=== PATIENT | male | born 1950 | race Caucasian/White ===

== ENCOUNTER 2019-09-04 05:32 | Observation (INO) | payer OTHER, BC ==
[~2019-09-04] VITALS: Ht 182.9 cm; Wt 88.6 kg
[~2019-09-04 05:32] MED LIST: FLUT1DIS3 INH; MELO15TA24 PO; THRIVE PO; VARE1TAB21 PO
[2019-09-04 06:21] VITALS: BP 129/86
[2019-09-04] MEDS ORDERED: LACTATED RINGERS 1,000 ML IV SCH (06:25)
[2019-09-04] MEDS ORDERED: LIDOCAINE-MPF 1%, 2ML ONE (06:28)
[2019-09-04] MEDS ORDERED: GABAPENTIN 300 MG CAPSULE ONE (06:42)
[2019-09-04] MEDS ORDERED: ACETAMINOPHEN 500 MG TABLET ONE (06:42)
[2019-09-04] MEDS ORDERED: FENTANYL PF 250 MCG/5ML ONE ×3 (06:47→08:39)
[2019-09-04] MEDS ORDERED: MIDAZOLAM 1 MG/ML, 2ML ONE (06:47)
[2019-09-04] MEDS ORDERED: GLYCOPYRROLATE 0.2MG/1ML, 5ML ONE (06:53)
[2019-09-04] MEDS ORDERED: PROPOFOL 10 MG/ML, 20ML ONE (06:53)
[2019-09-04] MEDS ORDERED: ROCURONIUM 10MG/ML,5ML ONE (06:53)
[2019-09-04] MEDS ORDERED: CEFAZOLIN 1,000 MG ONE (06:53)
[2019-09-04] MEDS ORDERED: PHENYLEPHRINE 10 MG/ML ONE (06:53)
[2019-09-04] MEDS ORDERED: NEOSTIGMINE 1 MG/ML, 10ML ONE (06:53)
[2019-09-04] MEDS ORDERED: GABAPENTIN 300 MG CAPSULE PO ONE (07:00)
[2019-09-04] MEDS ORDERED: ACETAMINOPHEN 500 MG TABLET PO ONE (07:00)
[2019-09-04] MEDS ORDERED: INDIGO CARMINE 0.8%, 5ML ONE (07:16)
[2019-09-04] MEDS ORDERED: BUPIVACAINE/PF 0.25% ONE (07:16)
[2019-09-04] MEDS ORDERED: THROMBIN (RECOMBINANT) 5,000 UNIT VIAL TP ONE (07:16)
[2019-09-04] MEDS ORDERED: OPIUM/BELLADONNA SUPP.RECT 16.2-60 MG ONE (07:17)
[2019-09-04] MEDS ORDERED: EPINEPHRINE 1 MG/ML, 1ML ONE ×2 (07:17→09:30)
[2019-09-04] MEDS ORDERED: BUPIVACAINE/PF 0.5% ONE (07:27)
[2019-09-04] MEDS ORDERED: hydrALAzine 20 MG/ML, 1ML IV PRN (07:30)
[2019-09-04] MEDS ORDERED: FENTANYL PF 100 MCG/2ML IV PRN (07:30)
[2019-09-04] MEDS ORDERED: LABETALOL 5MG/ML, 20ML IV PRN (07:30)
[2019-09-04] MEDS ORDERED: HYDROmorphone 2 MG/ML, 1ML IVPush PRN (07:30)
[2019-09-04] MEDS ORDERED: MORPHINE SULFATE 4 MG/ML, 1ML IVPush PRN (07:30)
[2019-09-04] MEDS ORDERED: ONDANSETRON 2MG/ML, 2ML IV PRN ×2 (07:30→10:30)
[2019-09-04] MEDS ORDERED: MEPERIDINE/PF 25MG/ML,1ML IVPush PRN (07:30)
[2019-09-04] MEDS ORDERED: ALBUTEROL SULFATE 2.5 MG/3 ML NPPB PRN (07:30)
[2019-09-04] MEDS ORDERED: OXYcodone 5 MG/5 ML ORAL.SOL UDC PO PRN (07:30)
[2019-09-04] MEDS ORDERED: hydrALAzine 20 MG/ML, 1ML ONE (08:40)
[2019-09-04] MEDS ORDERED: METOPROLOL 1 MG/ML, 5ML ONE (09:07)
[2019-09-04] MEDS ORDERED: HYDROmorphone 1 MG/ML, 1ML INJ IV PRN (10:30)
[2019-09-04] MEDS: HEPARIN 5,000 UNITS/ML, 1ML SQ SCH ×2 (10:30→18:30)
[2019-09-04] MEDS ORDERED: FENTANYL PF 100 MCG/2ML ONE ×2 (10:48→12:38)
[2019-09-04 13:07] LABS: ALBUMIN 3.3 g/dL (3.4-5.0); ANION GAP 7 mmol/L (5-15); CALCIUM 8.2 mg/dL (8.5-10.1); CHLORIDE 107 mmol/L (98-107); CREATININE 1.53 mg/dL (0.7-1.3)
[2019-09-04 13:24] VITALS: BP 119/73
[2019-09-04] MEDS: ALBUTEROL SULFATE 2.5MG/0.5ML NPPB SCH ×2 (14:00→20:00)
[2019-09-04] MEDS: SODIUM CHLORIDE 0.9% 1,000 ML IV SCH ×2 (14:02→22:02)
[2019-09-04] MEDS: ACETAMINOPHEN 325 MG TABLET PO SCH ×2 (15:41→22:02)
[2019-09-04] MEDS: OXYcodone 5 MG/5 ML ORAL.SOL UDC PO PRN ×2 (15:41→22:39)
[2019-09-04] MEDS: CEFAZOLIN PMX 1GM/50ML 50 ML IVPB SCH (19:05)
[2019-09-04 19:38] VITALS: BP 116/70
[2019-09-04] MEDS: BUDESONIDE 0.5 MG/2 ML INHA INH SCH (21:00)
[2019-09-04] MEDS: DOCUSATE 100 MG CAPSULE PO SCH (21:17)
[2019-09-05 00:21] VITALS: BP 131/70
[2019-09-05] MEDS: HYDROmorphone 2 MG/ML, 1ML IV PRN ×2 (01:54→08:43)
[2019-09-05] MEDS: HEPARIN 5,000 UNITS/ML, 1ML SQ SCH ×3 (01:59→18:06)
[2019-09-05] MEDS: ALBUTEROL SULFATE 2.5MG/0.5ML NPPB SCH ×4 (02:00→20:00)
[2019-09-05] MEDS: CEFAZOLIN PMX 1GM/50ML 50 ML IVPB SCH (03:10)
[2019-09-05] MEDS: OXYcodone IR 5MG TABLET PO PRN ×3 (04:20→19:31)
[2019-09-05] MEDS: ACETAMINOPHEN 325 MG TABLET PO SCH ×4 (04:21→21:31)
[2019-09-05 04:27] VITALS: BP 137/79
[2019-09-05] MEDS: SODIUM CHLORIDE 0.9% 1,000 ML IV SCH ×3 (05:28→21:31)
[2019-09-05 05:34] LABS: ANION GAP 4 mmol/L (5-15); CHLORIDE 108 mmol/L (98-107)
[2019-09-05 05:37] LABS: CREATININE 0.95 mg/dL (0.7-1.3)
[2019-09-05 07:20] VITALS: BP 124/74
[2019-09-05] MEDS: POLYETHYLENE GLYCOL 17 GM PACKET PO SCH (08:43)
[2019-09-05] MEDS: DOCUSATE 100 MG CAPSULE PO SCH ×2 (08:43→21:00)
[2019-09-05] MEDS: BUDESONIDE 0.5 MG/2 ML INHA INH SCH ×2 (09:00→21:00)
[2019-09-05 13:16] VITALS: BP 117/75
[2019-09-05 19:09] VITALS: BP 135/80
[2019-09-06] MEDS: OXYcodone IR 5MG TABLET PO PRN ×4 (00:19→13:23)
[2019-09-06 00:36] VITALS: BP 119/70
[2019-09-06] MEDS: HEPARIN 5,000 UNITS/ML, 1ML SQ SCH ×2 (02:30→11:02)
[2019-09-06] MEDS: SODIUM CHLORIDE 0.9% 1,000 ML IV SCH ×2 (02:53→11:02)
[2019-09-06] MEDS: ACETAMINOPHEN 325 MG TABLET PO SCH ×2 (04:25→11:02)
[2019-09-06 04:46] LABS: BASOPHILS # (AUTO) 0.06 x10^3/uL (0-0.1); BASOPHILS % (AUTO) 1 % (0-1); EOSINOPHILS # (AUTO) 0.22 x10^3/uL (0-0.4); EOSINOPHILS % (AUTO) 2 % (1-7); LYMPHOCYTES # (AUTO) 1.95 x10^3/uL (1-3.4); LYMPHOCYTES % (AUTO) 18 % (22-44); MD NO; MEAN CORPUSCULAR HEMOGLOBIN 31.3 pg (27.5-34.5); MEAN CORPUSCULAR HGB CONC 33.1 g/dL (33.2-36.2); MEAN CORPUSCULAR VOLUME 94.7 fL (81-97); MEAN PLATELET VOLUME 8.2 fL (7.4-10.4); MONOCYTES # (AUTO) 1.22 x10^3/uL (0.2-0.8); MONOCYTES % (AUTO) 11 % (2-9); NEUTROPHILS % (AUTO) 69 % (42-75); PLATELET COUNT 260 x10^3/uL (130-400); RED BLOOD COUNT 4.52 x10^6/uL (4.38-5.82); RED CELL DISTRIBUTION WIDTH 13.5 % (9.4-14.8)
[2019-09-06 04:55] LABS: ALBUMIN 2.6 g/dL (3.4-5.0); ANION GAP 6 mmol/L (5-15); CALCIUM 7.9 mg/dL (8.5-10.1); CHLORIDE 107 mmol/L (98-107)
[2019-09-06 04:58] LABS: ALANINE AMINOTRANSFERASE 20 U/L (12-78); ALKALINE PHOSPHATASE 43 U/L (45-117); BILIRUBIN,TOTAL 0.8 mg/dL (0.2-1.0); CREATININE 0.75 mg/dL (0.7-1.3); TOTAL PROTEIN 5.9 g/dL (6.4-8.2)
[2019-09-06 07:33] VITALS: BP 128/76
[2019-09-06] MEDS: DOCUSATE 100 MG CAPSULE PO SCH (09:15)
[2019-09-06] MEDS: POLYETHYLENE GLYCOL 17 GM PACKET PO SCH (09:15)
[2019-09-06 13:27] VITALS: BP 142/74
[2019-09-06 15:23] VITALS: BP 136/83
[2019-09-06] MEDS: HYDROmorphone 2 MG/ML, 1ML IV PRN (15:47)
[2019-09-06] MEDS ORDERED: DOCU-131 PO (16:27)
[2019-09-06] MEDS ORDERED: HYDR-3240 PO (16:28)
== END 2019-09-06 16:44 | disposition home or self-care (01) ==
LOC: OUT 05:32 → 4NE 13:17 → OUT 13:53 → DCLOUNGE 09-06 16:25
PROVIDERS: ADMIT Student in an Organized Health Care Education/Training Program; ATTEND Student in an Organized Health Care Education/Training Program
DX: K40.20 Bilateral inguinal hernia, without obstruction or gangrene, not specified as recurrent (principal); N40.1 Benign prostatic hyperplasia with lower urinary tract symptoms; J44.9 Chronic obstructive pulmonary disease, unspecified; N39.0 Urinary tract infection, site not specified; Z87.891 Personal history of nicotine dependence; F10.10 Alcohol abuse, uncomplicated
CPT/HCPCS: 36415; 49650; 80048; 80053; 82040; 85014; 85025; 86850; 86900; 88309; 93005; 96365; 96366; 96372; 96375; 96376; C1729; C1760; C1781; G0378; J0171; J0360; J0690; J1170; J1644; J2250; J2370; J2405; J2704; J2710; J3010; J3490; J7030; J7120; S0020; S2900